=== PATIENT | male | born 1980 | race Caucasian/White ===

== ENCOUNTER → 2017-12-26 16:08 | Outpatient (CLI) | payer OTHER, MEDICAID, SELFPAY ==
--- NOTE | 2017-12-26 16:10 | DI.RAD.S_ITS ---
PROCEDURE: XR CERVICAL SPINE 2V OR 3V INDICATIONS: 37 year-old male with neck pain and limited range of motion. TECHNIQUE: 3 view(s) of the cervical spine were acquired. COMPARISON: None. FINDINGS: Bones: No fractures or dislocations to the T1 level. The lateral masses of C1 appear intact on the odontoid view. No disc or facet joint degeneration. No suspicious bony lesions. Soft tissues: No prevertebral soft tissue swelling. IMPRESSION: No acute or degenerative bony abnormalities of the cervical spine to the T1 level. Dictated by: Malachi Benitez M.D. on 12/26/2017 at 16:34 Approved by: Malachi Benitez M.D. on 12/26/2017 at 16:35
== END ==
PROVIDERS: PCP Family Medicine; Visit Provider Family Medicine
DX: M54.2 Cervicalgia (principal)
CPT/HCPCS: 72040

== ENCOUNTER → 2018-01-13 06:42 | Outpatient (CLI) | payer OTHER, MEDICAID, SELFPAY ==
--- NOTE | 2018-01-13 06:43 | DI.MRI.S_ITS ---
PROCEDURE: MR CERVICAL SPINE WO CON INDICATIONS: neck pain TECHNIQUE: Noncontrast sagittal T1 spin echo and T2 fast spin echo, sagittal STIR, foraminal oblique sagittal T2 fast spin echo, and axial gradient echo or T2 fast spin echo through the cervical spine. COMPARISON: None. FINDINGS: Image quality: Excellent. Alignment and Curvature: There is straightening of normal cervical curvature. There is trace anterolisthesis of C3 on C4. Bone Marrow: Marrow demonstrates normal overall signal. Spinal Cord: Visualized spinal cord has normal size and signal. No cerebellar tonsillar herniation. Paraspinous Soft Tissues: No paravertebral masses. Prevertebral soft tissues are normal in thickness. Discs: Minimal desiccation is present at C3-4, C4-5, C5-6 and C6-7. C2-C3: No disc bulge, spinal stenosis or foraminal narrowing. C3-C4: Mild disc bulge with posterior central protrusion with minimal indentation of the anterior thecal sac. Minimal right foraminal narrowing. C4-C5: Minimal disc bulge without spinal stenosis. Moderate right foraminal narrowing with uncovertebral hypertrophy. C5-C6: No disc bulge, spinal stenosis or foraminal narrowing. C6-C7: Prominent artifact is present at this level. There is questionable minimal disc bulge. No gross spinal stenosis. C7-T1: Prominent artifact is present at this level. No gross spinal stenosis, disc bulge or foraminal narrowing. IMPRESSION: 1. Early degenerative changes most prominent at C4-5 demonstrate moderate right foraminal narrowing secondary to uncovertebral hypertrophy. Dictated by: Maggi Uribe M.D. on 01/13/2018 at 13:21 Approved by: Maggi Uribe M.D. on 01/13/2018 at 13:24
== END ==
PROVIDERS: PCP Family Medicine; Visit Provider Family Medicine
DX: M50.321 Other cervical disc degeneration at C4-C5 level (principal)
CPT/HCPCS: 72141

== ENCOUNTER 2022-03-30 12:58 | Emergency (ER) | payer OTHER, MEDICAID, SELFPAY ==
[2022-03-30 13:24] VITALS: BP 169/104; PULSE 99; RESP 22; TEMP 36.6; O2SAT 97; BMI 40.4
--- NOTE | 2022-03-30 14:36 | PC.NURSE ---
Addendum entered by Eliza Kc CNA 03/30/22 15:26: called for patient in the waiting room, no answer @[id number] Original Note: name called to waiting room to bring patient back to procedure chair to start iv, draw labs, get ekg; no answer called 3 times
--- NOTE | 2022-03-30 15:35 | PC.NURSE ---
no answer at 1435 calling name from waiting room Called @ 1510, no answer on phone tried again at 1524 no answer from waiting room
== END 2022-03-30 15:25 | disposition left against medical advice (07) ==
PROVIDERS: Emergency Provider Emergency Medicine; PCP Family Medicine
CPT/HCPCS: 99281